=== PATIENT | female | born 1930 | race Caucasian/White ===

== ENCOUNTER 2017-02-14 14:41 | Emergency (ER) | payer MEDICARE ==
[~2017-02-14] VITALS: Ht 160 cm; Wt 58.0 kg
[~2017-02-14 14:41] MED LIST: MULT-65 PO; NORC7.5T PO; OMEG10005 PO; Z.0.COMMODE-3:1; Z.0.CPM; Z.0.WALKERFRONT; ZOCO40TA PO
[2017-02-14 16:14] VITALS: BP 180/78; PULSE 57; RESP 16; TEMP 98.2; O2SAT 96
[2017-02-14] MEDS ORDERED: ASPI325T PO (16:21)
[2017-02-14] MEDS ORDERED: OMEGCAP PO (16:21)
[2017-02-14] MEDS ORDERED: SIMV40TA PO (16:21)
[2017-02-14] MEDS ORDERED: SODIUM CHLORIDE 0.9% FLUSH 10 ML FLUSH IV FLUSH PRN (16:45)
--- NOTE | 2017-02-14 16:45 | PD ---
HPI Chief Complaint: Numbness/Tingling Time Seen by Provider: 16:43 Travel History International Travel<30 days: No Contact w/Intl Traveler<30days: No Traveled to known affect area: No History of Present Illness HPI Patient comes in complaining of tingling and generalized weakness and bilateral lower extremities. Earlier today while talking on the phone with her family. Patient reports she was standing up at this time. Patient states since symptoms have slowly improved. Patient states it was entire legs bilaterally and since has improved. Patient denies any loss or change in bowel or bladder, fevers, chest pain, shortness of breath, headache, nausea or vomiting, recent falls, or upper extremity weakness. PFSH Past Medical History Arthritis: Yes Anxiety: Yes Depression: No Cancer: No Cardiovascular Problems: No High Cholesterol: Yes Chest Pain: No Cerebrovascular Accident: Yes Diabetes: No Diminished Hearing: No Endocrine: No Glaucoma: No Genitourinary: No Hepatitis: No Hiatal Hernia: No Hypertension: No Immune Disorder: No Musculoskeletal: Yes (arthritis hx of neck problems) Neurologic: Yes (stroke 2 years ago) Psychiatric: No Reproductive: No Respiratory: No Thyroid Disease: No Past Surgical History AICD: No Eye Surgery: Yes (nhi cataract removal) Gynecologic Surgery: Yes (LT LUMPECTOMY) Joint Replacement: No Pacemaker: No Other Surgery: Yes Social History Alcohol Use: Yes (RARELY) Tobacco Use: No Substance Use: No Allergies-Medications (Allergen,Severity, Reaction): Coded Allergies: No Known Allergies (Verified , 03/20/15) Reported Meds & Prescriptions Reported Meds & Active Scripts Active Walker Front Wheel (Z.0.walkerfront) Device 1 Unit Reported [place]-3 Fish Oil/Vitamin (Fish Oil-Cholecalciferol) 1,000-1,000 Mg Cap 1 Cap PO DAILY Simvastatin 40 Mg Tab 40 Mg PO HS Aspirin 325 Mg Tab 325 Mg PO DAILY Review of Systems Except as stated in HPI: all other systems reviewed are Neg Physical Exam Narrative GENERAL: Well-developed, well nourished, in no acute distress, and non-ill appearing. SKIN: Focused skin assessment warm and dry. HEAD: Atraumatic. Normocephalic. EYES: Pupils equal and round. EOMI. No scleral icterus. No injection or drainage. ENT: No nasal bleeding or discharge. Mucous membranes pink and moist. NECK: Trachea midline. Supple. No nuclear rigidity. CARDIOVASCULAR: Regular rate and rhythm. No murmur appreciated. RESPIRATORY: No accessory muscle use. No respiratory distress. Clear to auscultation. Breath sounds equal bilaterally. GASTROINTESTINAL: Abdomen soft, non-tender, nondistended. Hepatic and splenic margins not palpable. No pulsatile mass. MUSCULOSKELETAL: No obvious deformities. No clubbing. No cyanosis. No edema. Full range of motion. Hip: FROM and equal BL with passive flexion, extension, Abduction, Adduction, and internal/external rotation. Pulses equal BL distal to injury. Capillary refill less than 2 seconds distal to injury and equal BL. FROM distal to injury and equal BL. Strength distal to injury equal BL. NV intact distal to injury and equal BL. Plantar flexion and dorsal flexion equal BL. Dorsal pulses equal BL. Sensation equal BL 1st web space. Negative Homans sign bilaterally. NEUROLOGICAL: Awake and alert. No obvious cranial nerve deficits. Motor grossly within normal limits. Normal speech. PSYCHIATRIC: Appropriate mood and affect; insight and judgment normal. Data Data Last Documented VS Vital Signs Date Time Temp Pulse Resp B/P Pulse Ox O2 Delivery O2 Flow Rate FiO2 02/14/17 16:49 16 97 Room Air 02/14/17 16:14 98.2 57 180/78 Orders Basic Metabolic Panel (Bmp) (02/14/17 16:36) Complete Blood Count With Diff (02/14/17 16:36) Urinalysis - C+S If Indicated (02/14/17 16:36) Iv Access Insert/Monitor (02/14/17 16:36) Ecg Monitoring (02/14/17 16:36) Oximetry (02/14/17 16:36) Sodium Chloride 0.9% Flush (Ns Flush) (02/14/17 16:45) Spine, Lumbar - Ltd (Ap & Lat) (02/14/17 ) Labs Laboratory Tests Test 02/14/17 02/14/17 16:45 17:52 White Blood Count 6.9 TH/MM3 Red Blood Count 4.25 MIL/MM3 Hemoglobin 12.8 GM/DL Hematocrit 38.5 % Mean Corpuscular Volume 90.4 FL Mean Corpuscular Hemoglobin 30.2 PG Mean Corpuscular Hemoglobin 33.4 % Concent Red Cell Distribution Width 13.9 % Platelet Count 211 TH/MM3 Mean Platelet Volume 9.6 FL Neutrophils (%) (Auto) 60.5 % Lymphocytes (%) (Auto) 28.5 % Monocytes (%) (Auto) 8.8 % Eosinophils (%) (Auto) 1.3 % Basophils (%) (Auto) 0.9 % Neutrophils # (Auto) 4.2 TH/MM3 Lymphocytes # (Auto) 2.0 TH/MM3 Monocytes # (Auto) 0.6 TH/MM3 Eosinophils # (Auto) 0.1 TH/MM3 Basophils # (Auto) 0.1 TH/MM3 CBC Comment DIFF FINAL Differential Comment Sodium Level 142 MEQ/L Potassium Level 4.0 MEQ/L Chloride Level 107 MEQ/L Carbon Dioxide Level 28.1 MEQ/L Anion Gap 7 MEQ/L Blood Urea Nitrogen 20 MG/DL Creatinine 0.57 MG/DL Estimat Glomerular Filtration 101 ML/MIN Rate Random Glucose 82 MG/DL Calcium Level 8.8 MG/DL Urine Color YELLOW Urine Turbidity CLEAR Urine pH 7.0 Urine Specific [place] 1.014 Urine Protein NEG mg/dL Urine Glucose (UA) NEG mg/dL Urine Ketones NEG mg/dL Urine Occult Blood NEG Urine Nitrite NEG Urine Bilirubin NEG Urine Urobilinogen LESS THAN 2.0 MG/DL Urine Leukocyte Esterase SMALL Urine WBC 2 /hpf Urine Amorphous Sediment OCC Microscopic Urinalysis Comment CULT NOT INDICATED MDM Medical Decision Making Medical Screen Exam Complete: Yes Emergency Medical Condition: Yes Differential Diagnosis Electrolyte abnormality, fracture, UTI, nonspecific tingling, other Narrative Course Patient in no obvious distress upon re-evaluation. All pertinent laboratory/ Radiology result(s) discussed with patient. Discussed patient with Dr. Morin, who saw and evaluated the patient and is in agreement with plan of care and disposition. Any questions/concerns in reference to patient diagnosis/ condition discussed and clarified prior to patient's discharge. Reinforced sheer importance of close follow up with patient's primary physician or primary care clinic. Instructed patient to return to ED immediately, if symptoms return/ worsen. Pt showed understanding of above instructions. Further instructions and recommendations were detailed in discharge paperwork. Pt ambulated without difficulty out of ED at discharge with her walker. Diagnosis Primary Impression: Tingling in extremities Patient Instructions: General Instructions Additional Instructions: Follow-up with your primary care physician on Friday for reevaluation. Return to the emergency department if symptoms get worse. Disposition: 01 DISCHARGE HOME Condition: Stable Isaías Rachel Feb 14, 2017 16:45
[2017-02-14 16:49] VITALS: RESP 16; O2SAT 97
[2017-02-14 17:05] LABS: AUTOMATED NEUTROPHIL # 4.2 TH/MM3 (1.8-7.7); BASOPHIL # 0.1 TH/MM3 (0-0.2); BASOPHIL % 0.9 % (0.0-2.0); EOSINOPHIL # 0.1 TH/MM3 (0-0.4); EOSINOPHIL % 1.3 % (0.0-4.0); HEMATOCRIT 38.5 % (35.0-46.0); HEMO FLAGS DIFF FINAL; LYMPH % 28.5 % (9.0-44.0); MEAN CELL VOLUME 90.4 FL (80.0-100.0); MEAN CORPUSCULAR HEMOGLOBIN 30.2 PG (27.0-34.0); MEAN CORPUSCULAR HGB CONC 33.4 % (32.0-36.0); MONO % 8.8 % (0.0-8.0); NEUT % 60.5 % (16.0-70.0); PLATELET COUNT 211 TH/MM3 (150-450); RED BLOOD COUNT 4.25 MIL/MM3 (4.00-5.30); RED CELL DISTRIBUTION WIDTH 13.9 % (11.6-17.2); WHITE BLOOD COUNT 6.9 TH/MM3 (4.0-11.0)
--- NOTE | 2017-02-14 17:17 | RADRPT ---
EXAM DATE/TIME: 02/14/2017 17:07 [facility] COMPARISON: No previous studies available for comparison. INDICATIONS : Weakness. Pain down legs. MEDICAL HISTORY : None. SURGICAL HISTORY : None. ENCOUNTER: Initial ACUITY: 3 days PAIN SCORE: 6/10 LOCATION: Bilateral Paraspinal FINDINGS: Bone density is decreased. Calcified mass in the pelvis likely reflects calcified fibroid. There is m ultilevel osteophyte formation. No compression deformity. Mild disc space narrowing. Aortic and iliac artery calcifications are seen. Moderate facet hypertrophic changes are noted. CONCLUSION: Degenerative changes are noted as above. Atherosclerosis. Damon Tapia MD on February 14, 2017 at 17:15 Board Certified Radiologist. This report was verified electronically.
[2017-02-14 17:23] LABS: BICARBONATE 28.1 MEQ/L (21.0-32.0)
[2017-02-14 18:14] LABS: BLOOD, URINE NEG (NEG); COMMENT (UR) CULT NOT INDICATED; CULTURE IF INDICATED CULT NOT INDICATED; GLUCOSE,URINE NEG (NEG); KETONE, URINE NEG (NEG); NITRITE,URINE NEG (NEG); URINE COLOR YELLOW (YELLW/STRAW)
--- NOTE | 2017-02-14 18:50 | PD ---
Physical Exam Narrative GENERAL: Well-nourished, well-developed patient. SKIN: Warm and dry. HEAD: Normocephalic and atraumatic. EYES: No injection or drainage. ENT: No nasal drainage noted. NECK: Supple, trachea midline. CARDIOVASCULAR: Regular rate and rhythm RESPIRATORY: No increased effort. No accessory muscle use. GASTROINTESTINAL: Abdomen soft, non-tender, nondistended. EXTREMITIES: No edema. BACK: Nontender without obvious deformity in midline, no cvat. NEUROLOGICAL: Awake and alert. Motor and sensory grossly within normal limits. Normal speech. 5 out of 5 in all 4 extremities Data Data Last Documented VS Vital Signs Date Time Temp Pulse Resp B/P Pulse Ox O2 Delivery O2 Flow Rate FiO2 02/14/17 16:49 16 97 Room Air 02/14/17 16:14 98.2 57 180/78 Orders Basic Metabolic Panel (Bmp) (02/14/17 16:36) Complete Blood Count With Diff (02/14/17 16:36) Urinalysis - C+S If Indicated (02/14/17 16:36) Iv Access Insert/Monitor (02/14/17 16:36) Ecg Monitoring (02/14/17 16:36) Oximetry (02/14/17 16:36) Sodium Chloride 0.9% Flush (Ns Flush) (02/14/17 16:45) Spine, Lumbar - Ltd (Ap & Lat) (02/14/17 ) Labs Laboratory Tests Test 02/14/17 02/14/17 16:45 17:52 White Blood Count 6.9 TH/MM3 Red Blood Count 4.25 MIL/MM3 Hemoglobin 12.8 GM/DL Hematocrit 38.5 % Mean Corpuscular Volume 90.4 FL Mean Corpuscular Hemoglobin 30.2 PG Mean Corpuscular Hemoglobin 33.4 % Concent Red Cell Distribution Width 13.9 % Platelet Count 211 TH/MM3 Mean Platelet Volume 9.6 FL Neutrophils (%) (Auto) 60.5 % Lymphocytes (%) (Auto) 28.5 % Monocytes (%) (Auto) 8.8 % Eosinophils (%) (Auto) 1.3 % Basophils (%) (Auto) 0.9 % Neutrophils # (Auto) 4.2 TH/MM3 Lymphocytes # (Auto) 2.0 TH/MM3 Monocytes # (Auto) 0.6 TH/MM3 Eosinophils # (Auto) 0.1 TH/MM3 Basophils # (Auto) 0.1 TH/MM3 CBC Comment DIFF FINAL Differential Comment Sodium Level 142 MEQ/L Potassium Level 4.0 MEQ/L Chloride Level 107 MEQ/L Carbon Dioxide Level 28.1 MEQ/L Anion Gap 7 MEQ/L Blood Urea Nitrogen 20 MG/DL Creatinine 0.57 MG/DL Estimat Glomerular Filtration 101 ML/MIN Rate Random Glucose 82 MG/DL Calcium Level 8.8 MG/DL Urine Color YELLOW Urine Turbidity CLEAR Urine pH 7.0 Urine Specific [place] 1.014 Urine Protein NEG mg/dL Urine Glucose (UA) NEG mg/dL Urine Ketones NEG mg/dL Urine Occult Blood NEG Urine Nitrite NEG Urine Bilirubin NEG Urine Urobilinogen LESS THAN 2.0 MG/DL Urine Leukocyte Esterase SMALL Urine WBC 2 /hpf Urine Amorphous Sediment OCC Microscopic Urinalysis Comment CULT NOT INDICATED MDM Supervised Visit with [facility]ANG: Yes Interpretation(s) CBC & BMP Diagram 02/14/17 16:45 Last 24 hours Impressions Lumbar Spine X-Ray 02/14/17 0000 Signed Impressions: Service Date/Time: Tuesday, February 14, 2017 17:07 - CONCLUSION: Degenerative changes are noted as above. Atherosclerosis. Damon Tapia MD Narrative Course I, Dr. cruz, have reviewed the advance practice practitioner's documentation and am in agreement, met with the patient face to face, made the diagnosis, and the medical decision making was done by me. *My assessment and Findings: 87-year-old female presents with bilateral tingling to her feet over the past couple of days. She denies other associated symptoms. She denies recurrent history of this. She states she is concerned she has a history of stroke. Neuro exam without focal deficit. Limited lumbar x-ray, blood work and urine without acute findings. Advised MRI of lumbar spine is outpatient and given return instructions that she would need to return for. She agrees to this plan with close primary follow-up Diagnosis Primary Impression: Tingling in extremities Patient Instructions: General Instructions Departure Forms: Tests/Procedures Additional Instruction: Follow-up with your primary care physician on Friday for reevaluation. Return to the emergency department if symptoms get worse. Med/Other Pt SpecificInfo: No Change to Meds Disposition: 01 DISCHARGE HOME Condition: Stable Brigette Cruz MD Feb 14, 2017 18:50
== END 2017-02-14 19:00 | disposition home or self-care (01) ==
LOC: NEPC 14:41
DX: R20.2 Paresthesia of skin (principal); E78.00 Pure hypercholesterolemia, unspecified; Z86.73 Personal history of transient ischemic attack (TIA), and cerebral infarction without residual deficits
CPT/HCPCS: 72100; 80048; 81001; 85025; 99285

== ENCOUNTER 2017-09-03 16:23 | Emergency (ER) | payer MEDICARE ==
[~2017-09-03] VITALS: Ht 160 cm; Wt 56.0 kg
[~2017-09-03 16:23] MED LIST changes: +ASPI-183 PO; -MULT-65 PO; -NORC7.5T PO; -OMEG10005 PO; +OMEGCAP PO; +SIMV40TA PO; -Z.0.COMMODE-3:1; -Z.0.CPM; -ZOCO40TA PO
[2017-09-03 16:32] VITALS: BP 162/71; PULSE 92; RESP 16; TEMP 98.8; O2SAT 97
[2017-09-03 16:45] VITALS: O2SAT 97
[2017-09-03] MEDS ORDERED: SODIUM CHLORIDE 0.9% FLUSH 10 ML FLUSH IVF PRN (16:45)
[2017-09-03] MEDS ORDERED: KETOROLAC TROMETHAMINE 30 MG/ML (IVP) VIAL IV PUSH ONE (16:45)
--- NOTE | 2017-09-03 17:08 | PD ---
HPI Chief Complaint: Cold / Flu Symptoms Time Seen by Provider: 16:35 Travel History International Travel<30 days: No Contact w/Intl Traveler<30days: No Traveled to known affect area: No History of Present Illness HPI The patient is a 87-year-old female who presents to the emergency department for right sided upper pleuritic back pain. The patient states she traveled to the [facility] [place] [facility] [place] The patient recently traveled back, and noticed she had some URI symptoms. The patient states she had a mild sore throat for 5 days, and initial dry nonproductive cough, however, now has pain located over the right rhomboid area. The pain is worse with occasional coughing and inspiration. She does complain of mild shortness of breath but denies any anterior chest pain. She does have a history of varicose veins, but denies any history of DVT or PE. She denies any recent hospitalizations or surgeries in the last 3 months , however, does note a recent long car ride from the [facility]. She denies any current fever, chills, or sweats. Symptoms are moderate, there are no current alleviating or exacerbating factors. PFSH Past Medical History Arthritis: Yes Anxiety: Yes Depression: No Cancer: No Cardiovascular Problems: No High Cholesterol: Yes Chest Pain: No Cerebrovascular Accident: Yes Diabetes: No Diminished Hearing: No Endocrine: No Glaucoma: No Genitourinary: No Hepatitis: No Hiatal Hernia: No Hypertension: No Immune Disorder: No Musculoskeletal: Yes (arthritis hx of neck problems) Neurologic: Yes (stroke 2 years ago) Psychiatric: No Reproductive: No Respiratory: No Thyroid Disease: No Past Surgical History AICD: No Eye Surgery: Yes (nhi cataract removal) Gynecologic Surgery: Yes (LT LUMPECTOMY) Joint Replacement: No Pacemaker: No Other Surgery: Yes Social History Alcohol Use: Yes (RARELY) Tobacco Use: No Substance Use: No Allergies-Medications (Allergen,Severity, Reaction): Coded Allergies: No Known Allergies (Verified Adverse Reaction, Unknown, 09/03/17) Reported Meds & Prescriptions Reported Meds & Active Scripts Active Walker Front Wheel (Z.0.walkerfront) Device 1 Unit Reported [place]-3 Fish Oil/Vitamin (Fish Oil-Cholecalciferol) 1,000-1,000 Mg Cap 1 Cap PO DAILY Simvastatin 40 Mg Tab 40 Mg PO HS Aspirin 325 Mg Tab 325 Mg PO DAILY Review of Systems Except as stated in HPI: all other systems reviewed are Neg General / Constitutional: No: Fever HENT: Positive: Sore Throat, No: Lightheadedness Cardiovascular: No: Chest Pain or Discomfort, Tachycardia, Diaphoresis Respiratory: Positive: Cough, Shortness of Breath, Pleuritic Pain Gastrointestinal: No: Nausea, Vomiting, Abdominal Pain Musculoskeletal: No: Edema Neurologic: No: Dizziness Physical Exam Narrative GENERAL: Awake, alert, pleasant 87 year-old female who appears her stated age and is in no acute respiratory distress. SKIN: Focused skin assessment warm/dry. HEAD: Atraumatic. Normocephalic. EYES: Pupils equal and round. No scleral icterus. No injection or drainage. ENT: No nasal bleeding or discharge. Mucous membranes pink and moist. Cobblestoning of posterior oropharynx. No exudate noted. NECK: Trachea midline. No JVD. CARDIOVASCULAR: Regular rate and rhythm. No murmur appreciated. Heart rate in the 90s. RESPIRATORY: No accessory muscle use. Clear to auscultation. Breath sounds equal bilaterally. GASTROINTESTINAL: Abdomen soft, non-tender, nondistended. No rebound tenderness. MUSCULOSKELETAL: No obvious deformities. No clubbing. No cyanosis. Trace edema bilaterally. NEUROLOGICAL: Awake and alert. No obvious cranial nerve deficits. Motor grossly within normal limits. Normal speech. PSYCHIATRIC: Appropriate mood and affect; insight and judgment normal. Data Data Last Documented VS Vital Signs Date Time Temp Pulse Resp B/P (MAP) Pulse Ox O2 Delivery O2 Flow Rate FiO2 09/03/17 17:25 20 97 Room Air 09/03/17 16:32 98.8 92 162/71 (101) Orders Orders Complete Blood Count With Diff (09/03/17 16:45) Comprehensive Metabolic Panel (09/03/17 16:45) D-Dimer (09/03/17 16:45) Act Partial Throm Time (Ptt) (09/03/17 16:45) Prothrombin Time / Inr (Pt) (09/03/17 16:45) Magnesium (Mg) (09/03/17 16:45) Iv Access Insert/Monitor (09/03/17 16:45) Electrocardiogram (09/03/17 16:45) Ecg Monitoring (09/03/17 16:45) Oximetry (09/03/17 16:45) Oxygen Administration (09/03/17 16:45) Chest, Single Ap (09/03/17 16:45) Sodium Chloride 0.9% Flush (Ns Flush) (09/03/17 16:45) Ketorolac Inj (Toradol Inj) (09/03/17 16:45) Labs Laboratory Tests Test 09/03/17 17:00 White Blood Count 5.4 TH/MM3 Red Blood Count 3.89 MIL/MM3 Hemoglobin 12.1 GM/DL Hematocrit 36.0 % Mean Corpuscular Volume 92.5 FL Mean Corpuscular Hemoglobin 31.2 PG Mean Corpuscular Hemoglobin Concent 33.7 % Red Cell Distribution Width 12.6 % Platelet Count 188 TH/MM3 Mean Platelet Volume 9.4 FL Neutrophils (%) (Auto) 59.2 % Lymphocytes (%) (Auto) 29.8 % Monocytes (%) (Auto) 8.7 % Eosinophils (%) (Auto) 1.5 % Basophils (%) (Auto) 0.8 % Neutrophils # (Auto) 3.2 TH/MM3 Lymphocytes # (Auto) 1.6 TH/MM3 Monocytes # (Auto) 0.5 TH/MM3 Eosinophils # (Auto) 0.1 TH/MM3 Basophils # (Auto) 0.0 TH/MM3 CBC Comment DIFF FINAL Differential Comment Prothrombin Time 11.1 SEC Prothromb Time International Ratio 1.0 RATIO Activated Partial Thromboplast Time 25.8 SEC D-Dimer Quantitative (PE/DVT) 0.50 MG/L FEU Blood Urea Nitrogen 23 MG/DL Creatinine 0.63 MG/DL Random Glucose 130 MG/DL Total Protein 6.8 GM/DL Albumin 3.8 GM/DL Calcium Level 8.8 MG/DL Magnesium Level 2.3 MG/DL Alkaline Phosphatase 57 U/L Aspartate Amino Transf (AST/SGOT) 13 U/L Alanine Aminotransferase (ALT/SGPT) 21 U/L Total Bilirubin 0.4 MG/DL Sodium Level 141 MEQ/L Potassium Level 3.5 MEQ/L Chloride Level 106 MEQ/L Carbon Dioxide Level 26.8 MEQ/L Anion Gap 8 MEQ/L Estimat Glomerular Filtration Rate 90 ML/MIN MDM Medical Decision Making Medical Screen Exam Complete: Yes Emergency Medical Condition: Yes Medical Record Reviewed: Yes Interpretation(s) EKG reveals normal sinus rhythm with a rate of 64. No ischemic changes or ectopy noted. Chest x-ray reveals no acute disease Laboratory Tests Test 09/03/17 17:00 White Blood Count 5.4 TH/MM3 Red Blood Count 3.89 MIL/MM3 Hemoglobin 12.1 GM/DL Hematocrit 36.0 % Mean Corpuscular Volume 92.5 FL Mean Corpuscular Hemoglobin 31.2 PG Mean Corpuscular Hemoglobin Concent 33.7 % Red Cell Distribution Width 12.6 % Platelet Count 188 TH/MM3 Mean Platelet Volume 9.4 FL Neutrophils (%) (Auto) 59.2 % Lymphocytes (%) (Auto) 29.8 % Monocytes (%) (Auto) 8.7 % Eosinophils (%) (Auto) 1.5 % Basophils (%) (Auto) 0.8 % Neutrophils # (Auto) 3.2 TH/MM3 Lymphocytes # (Auto) 1.6 TH/MM3 Monocytes # (Auto) 0.5 TH/MM3 Eosinophils # (Auto) 0.1 TH/MM3 Basophils # (Auto) 0.0 TH/MM3 CBC Comment DIFF FINAL Differential Comment Prothrombin Time 11.1 SEC Prothromb Time International Ratio 1.0 RATIO Activated Partial Thromboplast Time 25.8 SEC D-Dimer Quantitative (PE/DVT) 0.50 MG/L FEU Blood Urea Nitrogen 23 MG/DL Creatinine 0.63 MG/DL Random Glucose 130 MG/DL Total Protein 6.8 GM/DL Albumin 3.8 GM/DL Calcium Level 8.8 MG/DL Magnesium Level 2.3 MG/DL Alkaline Phosphatase 57 U/L Aspartate Amino Transf (AST/SGOT) 13 U/L Alanine Aminotransferase (ALT/SGPT) 21 U/L Total Bilirubin 0.4 MG/DL Sodium Level 141 MEQ/L Potassium Level 3.5 MEQ/L Chloride Level 106 MEQ/L Carbon Dioxide Level 26.8 MEQ/L Anion Gap 8 MEQ/L Estimat Glomerular Filtration Rate 90 ML/MIN Differential Diagnosis Differential diagnosis includes bronchitis, URI, pneumonia, pleural effusion, pneumothorax, pulmonary embolism, viral syndrome. Narrative Course IV was established, labs are drawn and sent, and the patient was placed on cardiac telemetry monitoring and continuous pulse oximetry monitoring. EKG was ordered and interpreted. Chest x-ray was obtained. D-dimer was sent to lab. Chest x-ray was unremarkable. Labs are unremarkable. D-dimer 0.50, therefore, no indication for CT pulmonary angiogram. The patient most likely has right upper back pain that is pleuritic in nature secondary to underlying viral syndrome and a muscle strain. The patient takes aspirin daily, we'll avoid NSAIDs. I will place the patient on Medrol Dosepak with Zantac. She is advised to follow-up with her primary physician. She will be provided a copy of her labs and chest x-ray results at discharge. Diagnosis Primary Impression: Viral syndrome Additional Impression: Pleuritic pain Patient Instructions: General Instructions Additional Instructions: Medications as directed. Follow-up with your primary physician. Please provide the patient a copy of her CT results and lab results at discharge. Return if symptoms worsen or progress. Med/Other Pt SpecificInfo: Prescription(s) given Scripts Ranitidine (Zantac) 150 Mg Tab 150 MG PO BID for Reduce Stomach Acid for 10 Days, #20 TAB 0 Refills Prov: Tigre Garcia MD 09/03/17 Methylprednisolone Dosepak (Medrol Dosepak) 4 Mg Dspk 4 MG PO DIRECTED, #1 DSPK 0 Refills Per Pharmacist direction Prov: Tigre Garcia MD 09/03/17 Disposition: DISCHARGE HOME Condition: Stable Tigre Garcia MD Sep 03, 2017 17:08
[2017-09-03 17:15] LABS: AUTOMATED NEUTROPHIL # 3.2 TH/MM3 (1.8-7.7); BASOPHIL % 0.8 % (0.0-2.0); EOSINOPHIL # 0.1 TH/MM3 (0-0.4); EOSINOPHIL % 1.5 % (0.0-4.0); HEMO FLAGS DIFF FINAL; LYMPH % 29.8 % (9.0-44.0); LYMPHOCYTE # 1.6 TH/MM3 (1.0-4.8); MEAN CELL VOLUME 92.5 FL (80.0-100.0); MEAN CORPUSCULAR HEMOGLOBIN 31.2 PG (27.0-34.0); MEAN CORPUSCULAR HGB CONC 33.7 % (32.0-36.0); MONO % 8.7 % (0.0-8.0); NEUT % 59.2 % (16.0-70.0); PLATELET COUNT 188 TH/MM3 (150-450); RED BLOOD COUNT 3.89 MIL/MM3 (4.00-5.30); RED CELL DISTRIBUTION WIDTH 12.6 % (11.6-17.2); WHITE BLOOD COUNT 5.4 TH/MM3 (4.0-11.0)
--- NOTE | 2017-09-03 17:17 | RADRPT ---
EXAM DATE/TIME: 09/03/2017 17:05 [facility] COMPARISON: No previous studies available for comparison. INDICATIONS : Cough, chest pain when breathing for 3 days MEDICAL HISTORY : None. SURGICAL HISTORY : None. ENCOUNTER: Initial ACUITY: 3 days PAIN SCORE: 5/10 LOCATION: Bilateral chest FINDINGS: A single view of the chest demonstrates the lungs to be symmetrically aerated without evidence of mas s, infiltrate or effusion. The cardiomediastinal contours are unremarkable. Osseous structures are intact. CONCLUSION: No acute disease. Teofilo Meyers MD FACR on September 03, 2017 at 17:16 Board Certified Radiologist. This report was verified electronically.
[2017-09-03 17:28] LABS: CHLORIDE 106 MEQ/L (98-107); POTASSIUM 3.5 MEQ/L (3.5-5.1); SODIUM (NA) 141 MEQ/L (136-145)
[2017-09-03 17:31] LABS: ANION GAP 8 MEQ/L (5-15); BICARBONATE 26.8 MEQ/L (21.0-32.0); BLOOD UREA NITROGEN 23 MG/DL (7-18); MAGNESIUM 2.3 MG/DL (1.5-2.5)
[2017-09-03 17:34] LABS: ALT (GPT) 21 U/L (10-53); AST (GOT) 13 U/L (15-37)
[2017-09-03 17:35] LABS: GLOMERULAR FILTRATION RATE 90 ML/MIN (>89)
[2017-09-03 17:36] LABS: TOTAL BILIRUBIN ADULT 0.4 MG/DL (0.2-1.0)
[2017-09-03 17:37] LABS: ALKALINE PHOSPHATASE 57 U/L (45-117)
[2017-09-03 17:55] LABS: APTT (PATIENT) 25.8 SEC (24.3-30.1); PROTHROMBIN TIME - PATIENT 11.1 SEC (9.8-11.6)
[2017-09-03] MEDS ORDERED: ZANT150T2 PO (18:04)
[2017-09-03] MEDS ORDERED: MEDR4PAK PO (18:04)
[2017-09-03 18:27] VITALS: BP 158/72
--- NOTE | 2017-09-04 13:27 | EKG ---
Date Performed: 09/03/2017 Time Performed: 17:00:35 PTAGE: 87 years EKG: Sinus rhythm NORMAL ECG Compared to prior tracing no significant change PREVIOUS TRACING : 03/03/2015 10.03 DOCTOR: Amando Alvarez Interpretating Date/Time 09/04/2017 13:24:39
== END 2017-09-03 18:29 | disposition home or self-care (01) ==
LOC: PHED 16:23
DX: B34.9 Viral infection, unspecified (principal); R07.81 Pleurodynia; E78.00 Pure hypercholesterolemia, unspecified; Z79.899 Other long term (current) drug therapy
CPT/HCPCS: 71010; 80053; 83735; 85025; 85379; 85610; 85730; 93005; 96374; 99285; J1885

== ENCOUNTER 2018-04-14 21:43 | Emergency (ER) | payer MEDICARE ==
[~2018-04-14] VITALS: Ht 160 cm; Wt 54.5 kg
[~2018-04-14 21:43] MED LIST changes: +MEDR4PAK PO; +ZANT150T2 PO
[2018-04-14 21:45] VITALS: BP 172/92; PULSE 83; RESP 20; TEMP 98.2; O2SAT 97
[2018-04-14 22:12] LABS: AUTOMATED NEUTROPHIL # 3.9 TH/MM3 (1.8-7.7); BASOPHIL # 0.1 TH/MM3 (0-0.2); BASOPHIL % 1.8 % (0.0-2.0); EOSINOPHIL # 0.1 TH/MM3 (0-0.4); EOSINOPHIL % 1.7 % (0.0-4.0); HEMATOCRIT 37.8 % (35.0-46.0); HEMOGLOBIN 12.5 GM/DL (11.6-15.3); LYMPH % 23.6 % (9.0-44.0); LYMPHOCYTE # 1.4 TH/MM3 (1.0-4.8); MEAN CELL VOLUME 94.3 FL (80.0-100.0); MEAN CORPUSCULAR HEMOGLOBIN 31.2 PG (27.0-34.0); MEAN CORPUSCULAR HGB CONC 33.1 % (32.0-36.0); MEAN PLATELET VOLUME 9.5 FL (7.0-11.0); MONO % 9.4 % (0.0-8.0); MONOCYTE # 0.6 TH/MM3 (0-0.9); NEUT % 63.5 % (16.0-70.0); PLATELET COUNT 212 TH/MM3 (150-450); RED BLOOD COUNT 4.01 MIL/MM3 (4.00-5.30); RED CELL DISTRIBUTION WIDTH 12.6 % (11.6-17.2); WHITE BLOOD COUNT 6.1 TH/MM3 (4.0-11.0)
[2018-04-14 22:19] LABS: CHLORIDE 109 MEQ/L (98-107); SODIUM (NA) 142 MEQ/L (136-145)
[2018-04-14 22:22] LABS: CALCIUM 8.9 MG/DL (8.5-10.1)
[2018-04-14 22:23] LABS: ALBUMIN 3.8 GM/DL (3.4-5.0); BICARBONATE 25.4 MEQ/L (21.0-32.0); BLOOD UREA NITROGEN 19 MG/DL (7-18); GLUCOSE,RANDOM 118 MG/DL (74-106)
[2018-04-14 22:26] LABS: ALT (GPT) 17 U/L (10-53); AST (GOT) 17 U/L (15-37); CREATININE 0.64 MG/DL (0.50-1.00); GLOMERULAR FILTRATION RATE 88 ML/MIN (>89)
[2018-04-14 22:27] LABS: TOTAL BILIRUBIN ADULT 0.4 MG/DL (0.2-1.0); TOTAL PROTEIN 6.8 GM/DL (6.4-8.2)
[2018-04-14 22:28] LABS: ALKALINE PHOSPHATASE 68 U/L (45-117)
[2018-04-14 22:40] VITALS: BP 155/76; PULSE 70; RESP 20; O2SAT 98
--- NOTE | 2018-04-14 23:12 | RADRPT ---
EXAM DATE: 04/14/2018 10:56 PM EDT AGE/SEX: 88 years / Female INDICATIONS: Bilateral leg numbness. CLINICAL DATA: This is the patient's initial encounter. Patient reports that signs and symptoms have been present for 1 day and indicates a pain score of 0/10. MEDICAL/SURGICAL HISTORY: Cerebrovascular disease. Hypercholesterolemia. . RADIATION DOSE: 43.19 CTDI (mGy) COMPARISON: [facility], CT BRAIN W/O CONTRAST, 04/19/2013. . TECHNIQUE: CT of the head without contrast. Using automated exposure control and adjustment of the mA and/or kV according to patient size, radiation dose was kept as low as reasonably achievable to ob tain optimal diagnostic quality images. FINDINGS: Cerebrum: The ventricles are normal for age. No evidence of midline shift, mass lesion, hemorrhage or acute infarction. No extraaxial fluid collections are seen. Posterior Fossa: The cerebellum and brainstem are intact. The 4th ventricle is midline. The cerebe llopontine angle is unremarkable. Extracranial: The visualized portion of the orbits is intact. Skull: The calvaria is intact. No evidence of skull fracture. CONCLUSION: 1. No acute intracranial findings. Electronically signed by: Yobani Osei MD 04/14/2018 11:11 PM EDT
[2018-04-14 23:30] VITALS: BP 169/83; PULSE 72; RESP 20; O2SAT 98
[2018-04-15] VITALS: BP 166/80; PULSE 78; RESP 20; O2SAT 98
[2018-04-15 00:14] VITALS: BP 166/80
--- NOTE | 2018-04-15 00:18 | PD ---
HPI Chief Complaint: Respiratory Distress Time Seen by Provider: 21:51 Travel History International Travel<30 days: No Contact w/Intl Traveler<30days: No Traveled to known affect area: No History of Present Illness HPI 88-year-old female with a past medical history of anxiety presents to the emergency room complaining of an episode of shortness of breath followed by numbness in the lower extremity mainly at her feet. Symptoms started prior to arrival and improved by the time she arrived to the emergency room. Numbness started bilaterally below the knee and improved to just the distal most part of the feet bilaterally. Patient denies any headache, dizziness, weakness, slurring of speech, confusion, loss of consciousness or blurring of vision. Patient is anxious about flying tomorrow to [place] to see her daughter and she feels she would be better off staying home in [place]. PFSH Past Medical History Hx Anticoagulant Therapy: Yes (aspirin daily) Arthritis: Yes Anxiety: Yes Depression: No Cardiovascular Problems: No High Cholesterol: Yes Chest Pain: No Cerebrovascular Accident: Yes Diabetes: No Diminished Hearing: No Endocrine: No Glaucoma: No Genitourinary: No Hepatitis: No Hiatal Hernia: No Hypertension: No Immune Disorder: No Musculoskeletal: Yes (arthritis hx of neck problems) Neurologic: Yes (stroke 2 years ago) Psychiatric: No Reproductive: No Respiratory: No Thyroid Disease: No Past Surgical History AICD: No Eye Surgery: Yes (nhi cataract removal) Gynecologic Surgery: Yes (LT LUMPECTOMY) Joint Replacement: No Pacemaker: No Other Surgery: Yes (L lumpectomy) Social History Alcohol Use: Yes (RARELY) Tobacco Use: No Substance Use: No Allergies-Medications (Allergen,Severity, Reaction): Coded Allergies: No Known Allergies (Verified Adverse Reaction, Unknown, 09/03/17) Reported Meds & Prescriptions Reported Meds & Active Scripts Active Walker Front Wheel (Z.0.walkerfront) Device 1 Unit Reported [place]-3 Fish Oil/Vitamin (Fish Oil-Cholecalciferol) 1,000-1,000 Mg Cap 1 Cap PO DAILY Simvastatin 40 Mg Tab 40 Mg PO HS Aspirin 325 Mg Tab 325 Mg PO DAILY Review of Systems Except as stated in HPI: all other systems reviewed are Neg General / Constitutional: No: Fever, Chills Eyes: No: Blurred Vision, Redness, Pain HENT: No: Rhinorrhea, Congestion, Neck Stiffness, Neck Pain, Earache Cardiovascular: No: Chest Pain or Discomfort, Palpitations, Dyspnea on exertion Respiratory: Positive: Cough, Shortness of Breath, No: Wheezing Gastrointestinal: No: Nausea, Vomiting, Diarrhea, Abdominal Pain, Hematochezia , Constipation Genitourinary: No: Dysuria Musculoskeletal: No: Myalgias Skin: No Rash, No Hives Neurologic: No: Weakness, Dizziness, Syncope, Headache, Slurred Speech, Seizures Psychiatric: No: Suicidal Ideations Physical Exam Narrative Vital Signs Date Time Temp Pulse Resp B/P (MAP) Pulse Ox O2 Delivery O2 Flow Rate FiO2 04/15/18 00:14 78 20 166/80 (108) 98 04/15/18 00:00 78 20 166/80 (108) 98 Room Air 04/14/18 23:30 72 20 169/83 (111) 98 Room Air 04/14/18 22:40 70 20 155/76 (102) 98 Room Air 04/14/18 22:17 20 97 Room Air 04/14/18 21:45 98.2 83 20 172/92 (118) 97 GENERAL: Patient is alert and oriented -3 SKIN: Focused skin assessment warm/dry. HEAD: Atraumatic. Normocephalic. EYES: Pupils equal and round. No scleral icterus. No injection or drainage. ENT: No nasal bleeding or discharge. Mucous membranes pink and moist. NECK: Trachea midline. No JVD. CARDIOVASCULAR: Regular rate and rhythm. No murmur appreciated. RESPIRATORY: No accessory muscle use. Clear to auscultation. Breath sounds equal bilaterally. GASTROINTESTINAL: Abdomen soft, non-tender, nondistended. Hepatic and splenic margins not palpable. MUSCULOSKELETAL: No obvious deformities. No clubbing. No cyanosis. No edema. NEUROLOGICAL: Awake and alert. No obvious cranial nerve deficits. Motor grossly within normal limits. Normal speech. PSYCHIATRIC: Appropriate mood and affect; insight and judgment normal. Data Data Last Documented VS Vital Signs Date Time Temp Pulse Resp B/P (MAP) Pulse Ox O2 Delivery O2 Flow Rate FiO2 04/15/18 00:14 78 20 166/80 (108) 98 04/15/18 00:00 Room Air 04/14/18 21:45 98.2 Orders Orders Complete Blood Count With Diff (04/14/18 21:51) Comprehensive Metabolic Panel (04/14/18 21:51) Ecg Monitoring (04/14/18 21:51) Ct Brain W/O Iv Contrast(Rout) (04/14/18 ) Ed Discharge Order (04/15/18 00:18) Labs Laboratory Tests Test 04/14/18 22:00 White Blood Count 6.1 TH/MM3 Red Blood Count 4.01 MIL/MM3 Hemoglobin 12.5 GM/DL Hematocrit 37.8 % Mean Corpuscular Volume 94.3 FL Mean Corpuscular Hemoglobin 31.2 PG Mean Corpuscular Hemoglobin Concent 33.1 % Red Cell Distribution Width 12.6 % Platelet Count 212 TH/MM3 Mean Platelet Volume 9.5 FL Neutrophils (%) (Auto) 63.5 % Lymphocytes (%) (Auto) 23.6 % Monocytes (%) (Auto) 9.4 % Eosinophils (%) (Auto) 1.7 % Basophils (%) (Auto) 1.8 % Neutrophils # (Auto) 3.9 TH/MM3 Lymphocytes # (Auto) 1.4 TH/MM3 Monocytes # (Auto) 0.6 TH/MM3 Eosinophils # (Auto) 0.1 TH/MM3 Basophils # (Auto) 0.1 TH/MM3 CBC Comment DIFF FINAL Differential Comment Blood Urea Nitrogen 19 MG/DL Creatinine 0.64 MG/DL Random Glucose 118 MG/DL Total Protein 6.8 GM/DL Albumin 3.8 GM/DL Calcium Level 8.9 MG/DL Alkaline Phosphatase 68 U/L Aspartate Amino Transf (AST/SGOT) 17 U/L Alanine Aminotransferase (ALT/SGPT) 17 U/L Total Bilirubin 0.4 MG/DL Sodium Level 142 MEQ/L Potassium Level 3.6 MEQ/L Chloride Level 109 MEQ/L Carbon Dioxide Level 25.4 MEQ/L Anion Gap 8 MEQ/L Estimat Glomerular Filtration Rate 88 ML/MIN [facility] Medical Decision Making Medical Screen Exam Complete: Yes Emergency Medical Condition: Yes Medical Record Reviewed: Yes Differential Diagnosis Bronchitis, hypertension, anxiety, Narrative Course Patient condition improved patient was ambulatory at the ER without assistance. Symptoms almost resolved in the emergency room. Diagnosis Primary Impression: Tingling in extremities Additional Impression: Anxiety Referrals: Primary Care Physician 2 days Patient Instructions: Anxiety (ED), General Instructions, Paresthesia (ED) Disposition: 01 DISCHARGE HOME Condition: Stable Riaz Moore MD Apr 15, 2018 00:18
== END 2018-04-15 00:31 | disposition home or self-care (01) ==
LOC: PHED 21:43
DX: R20.2 Paresthesia of skin (principal); F41.9 Anxiety disorder, unspecified; R06.02 Shortness of breath; R05 Cough; E78.00 Pure hypercholesterolemia, unspecified; Z86.73 Personal history of transient ischemic attack (TIA), and cerebral infarction without residual deficits; M19.90 Unspecified osteoarthritis, unspecified site
CPT/HCPCS: 70450; 80053; 85025; 99284